=== PATIENT | male | born 1985 | race American Indian/Alaskan Native ===

== ENCOUNTER 2021-12-18 09:28 | Emergency (ER) | payer SELFPAY ==
[2021-12-18 09:37] VITALS: BP 122/74
--- NOTE | 2021-12-18 12:32 | Emergency Department Report ---
ED Back Pain/Injury HPI - General Chief Complaint: Back Pain/Injury Stated Complaint: BACK INJURY Time Seen by Provider: 12/18/21 11:17 Source: patient Limitations: No Limitations - History of Present Illness Initial Comments: Patient is a 36-year-old male that comes to the emergency room after twisting and injuring his back while working in the garage yesterday. He is ambulatory with no signs or symptoms of cauda equina. Vital Signs 12/18/21 09:34 Temperature 98.3 F Pulse Rate 62 Respiratory 17 Rate Blood Pressure 122/74 [Right] O2 Sat by Pulse 99 Oximetry MD Complaint: back pain -: Sudden Similar Symptoms Previously: No Place: home Severity scale (0 -10): 3 Consistency: intermittent Improves With: immobilization Worsens With: movement Associated Symptoms: denies other symptoms - Related Data Previous Rx's Medication Instructions Recorded Last Taken Type Cyclobenzaprine [Flexeril] 10 mg PO TID PRN #10 tablet 12/18/21 Unknown Rx Ibuprofen [Motrin] 800 mg PO Q8HR PRN #30 tablet 12/18/21 Unknown Rx predniSONE [Deltasone] 20 mg PO DAILY #5 tablet 12/18/21 Unknown Rx Allergies Allergy/AdvReac Type Severity Reaction Status Date / Time No Known Allergies Allergy Unverified 12/18/21 09:37 ED Review of Systems ROS: Stated complaint: BACK INJURY Other details as noted in HPI Comment: All other systems reviewed and negative ED Past Medical Hx - Past Medical History Previous Medical History?: No - Surgical History Past Surgical History?: No - Family History Family history: no significant - Social History Smoking Status: Never Smoker Substance Use Type: Alcohol - Medications Home Medications: Home Medications Medication Instructions Recorded Confirmed Last Taken Type Cyclobenzaprine [Flexeril] 10 mg PO TID PRN #10 tablet 12/18/21 Unknown Rx Ibuprofen [Motrin] 800 mg PO Q8HR PRN #30 tablet 12/18/21 Unknown Rx predniSONE [Deltasone] 20 mg PO DAILY #5 tablet 12/18/21 Unknown Rx ED Physical Exam - General Limitations: No Limitations General appearance: alert, in no apparent distress - Head Head exam: Present: atraumatic, normocephalic - Eye Eye exam: Present: normal appearance - ENT ENT exam: Present: mucous membranes moist - Neck Neck exam: Present: normal inspection - Respiratory Respiratory exam: Present: normal lung sounds bilaterally. Absent: respiratory distress - Cardiovascular Cardiovascular Exam: Present: regular rate, normal rhythm. Absent: systolic murmur, diastolic murmur, rubs, gallop - GI/Abdominal GI/Abdominal exam: Present: soft, normal bowel sounds - Rectal Rectal exam: Present: deferred - Extremities Exam Extremities exam: Present: normal inspection - Back Exam Back exam: Present: normal inspection - Neurological Exam Neurological exam: Present: alert, oriented X3 - Psychiatric Psychiatric exam: Present: normal affect, normal mood - Skin Skin exam: Present: warm, dry, intact, normal color. Absent: rash ED Course Vital Signs 12/18/21 09:34 Temperature 98.3 F Pulse Rate 62 Respiratory 17 Rate Blood Pressure 122/74 [Right] O2 Sat by Pulse 99 Oximetry ED Medical Decision Making - Radiology Data Radiology results: report reviewed, image reviewed nap - Medical Decision Making Vital Signs 12/18/21 09:34 Temperature 98.3 F Pulse Rate 62 Respiratory 17 Rate Blood Pressure 122/74 [Right] O2 Sat by Pulse 99 Oximetry Medicated with IM Decadron in the ER. Patient being discharged home with discharge plan of care including diet, activity medications and follow-up. He verbalizes understanding of plan of care. On discharge patient remains ambulatory in no acute distress and neuro intact. - Differential Diagnosis muscle v bone injury Critical care attestation.: If time is entered above; I have spent that time in minutes in the direct care of this critically ill patient, excluding procedure time. ED Disposition Clinical Impression: Musculoskeletal pain Back pain Qualifiers: Back pain location: low back pain Chronicity: acute Sciatica presence: without sciatica Disposition: 01 HOME / SELF CARE / HOMELESS Is pt being admited?: No Does the pt Need Aspirin: No Condition: Stable Instructions: Acute Back Pain, Adult Additional Instructions: Educations as ordered today Warm baths will help with the pain Stretching will help with reducing muscle spasm They are well-hydrated with water Follow-up with PCP next week if you are not feeling better referral below Prescriptions: predniSONE [Deltasone] 20 mg PO DAILY #5 tablet Cyclobenzaprine [Flexeril] 10 mg PO TID PRN #10 tablet PRN Reason: Muscle Spasm Ibuprofen [Motrin] 800 mg PO Q8HR PRN #30 tablet PRN Reason: Pain, Moderate (4-6) Referrals: SARWAT LOVETT MD [Staff Physician] - 3-5 Days Forms: Work/School Release Form(ED) Time of Disposition: 12:48
--- NOTE | 2021-12-18 12:45 | XRay Report ---
LUMBAR SPINE 3 VIEWS INDICATION / CLINICAL INFORMATION: pain low back. COMPARISON: None available. FINDINGS: BONES / JOINT(S): No acute fracture or subluxation. No significant arthritis. SOFT TISSUES: No significant abnormality. ADDITIONAL FINDINGS: None. Signer Name: Sumeet Flores MD Signed: 12/18/2021 12:40 PM Workstation Name: [id number]
[2021-12-18] MEDS ORDERED: dexAMETHasone 4 MG/ML VIAL IM ONE (12:47)
== END 2021-12-18 13:00 | disposition home or self-care (01) ==
LOC: ED 09:28
DX: M79.10 Myalgia, unspecified site (principal); M54.9 Dorsalgia, unspecified; F10.20 Alcohol dependence, uncomplicated
CPT/HCPCS: 72100; 96372; 99283; J1100